=== PATIENT | male | born 1945 | race Caucasian/White ===

== ENCOUNTER 2023-01-27 16:03 | Outpatient (CLI) | payer OTHER, MEDICARE ==
--- NOTE | 2023-01-27 17:14 | XRAY Report ---
PROCEDURE: Chest 2 View X-Ray INDICATIONS: CHEST WALL PAIN TECHNIQUE: 2 views of the chest were acquired. COMPARISON: None. FINDINGS: Surgical changes and devices: None. Lungs and pleura: No pleural effusions or pneumothorax. Lungs are clear. Mediastinum: Mediastinal contours appear normal. Heart size is normal. Bones and chest wall: No suspicious bony lesions. Overlying soft tissues appear unremarkable. IMPRESSION: No acute cardiopulmonary process. Reviewed by: Daniel Carr MD on 01/27/2023 5:13 PM PDT Approved by: Daniel Carr MD on 01/27/2023 5:13 PM PDT Station ID: [id number]
== END 2023-01-27 16:04 | disposition home or self-care (01) ==
LOC: DI 16:03
PROVIDERS: ATTEND Registered Nurse
DX: R07.89 Other chest pain (principal)

== ENCOUNTER 2023-03-17 16:27 | Outpatient (CLI) | payer MEDICARE | END 2023-03-17 16:28 | disposition critical access hospital (66) | LOC: EMS 16:27 | DX: R07.89 Other chest pain (principal); R06.02 Shortness of breath; R61 Generalized hyperhidrosis; R53.83 Other fatigue | CPT/HCPCS: A0425; A0427 ==

== ENCOUNTER 2023-03-17 16:50 | Emergency (ER) | payer MEDICARE ==
--- NOTE | 2023-03-17 17:06 | ED Physician Documentation ---
PD HPI CHEST PAIN - Stated complaint Stated Complaint: GENERAL WEAKNESS/SOA/DIZZY - History obtained from History obtained from: Patient, EMS - Additional information Additional information: 77-year-old gentleman with type 2 diabetes on insulin no history of heart disease. He got out of bed this morning feeling inappropriately fatigued. He did not really know why. He did a little more yesterday than normal, but he did not think it was enough to make him feel fatigued. Then after breakfast he went into his shop and was very diaphoretic while doing relatively minor physical tasks there and around 1 PM developed substernal chest pressure "heartburn." That can was coming and going throughout the afternoon. Finally he called the EMS and he was feeling better after a nitro glycerin in route. He has no pressure now. While still at home he took a Tums and that was not helpful. No recent travel, pedal edema or calf pain. PD PAST MEDICAL HISTORY - Past Medical History Past Medical History: Yes Cardiovascular: Hypertension Endocrine/Autoimmune: Type 2 diabetes - Allergies Allergies/Adverse Reactions: Allergies Allergy/AdvReac Type Severity Reaction Status Date / Time No Known Drug Allergies Allergy Verified 03/17/23 17:22 PD ED PE NORMAL - Vitals Vital signs reviewed: Yes - General General: Alert and oriented X 3, No acute distress - Neck Neck: Supple, no meningeal sign, No bony TTP - Cardiac Cardiac: RRR, No murmur - Respiratory Respiratory: No respiratory distress, Clear bilaterally - Abdomen Abdomen: Non tender - Extremities Extremities: No edema, No calf tenderness / cord - Neuro Neuro: Alert and oriented X 3, Normal speech Results - Vitals Vitals: Vital Signs - 24 hr 03/17/23 17:14 Temperature 36.0 C L Heart Rate 93 Respiratory 20 Rate Blood Pressure 126/74 O2 Saturation 94 Oxygen O2 Source Room air - EKG (time done) 8097 EKG releavant findings:: EKG personally interpreted by author of this note. Relevant findings are: Rate: Rate (enter#) (91) Rhythm: NSR [place]: Normal Intervals: Other (LAFB) QRS: Normal Ischemia: Normal ST segments. No: ST elevation c/w ischemia, ST depression - Labs Labs: Laboratory Tests 03/17/23 03/17/23 03/17/23 17:12 17:12 19:15 WBC 11.4 H RBC 4.91 Hgb 15.6 Hct 46.3 MCV 94.3 H MCH 31.8 H MCHC 33.7 RDW 13.9 Plt Count 315 MPV 9.5 Neut # (Auto) 7.7 H Lymph # (Auto) 2.6 Cherry # (Auto) 0.9 Eos # (Auto) 0.1 Baso # (Auto) 0.1 Absolute Nucleated RBC 0.00 Nucleated RBC % 0.0 Sodium 141 Potassium 3.2 L Chloride 105 Carbon Dioxide 27 Anion Gap 9.0 BUN 15 Creatinine 1.2 Estimated GFR (MDRD) 59 L Glucose 130 H Calcium 9.8 Total Bilirubin 0.4 AST 23 ALT 23 Alkaline Phosphatase 68 Troponin I High Sens 9.0 9.0 Total Protein 6.6 Albumin 3.9 Globulin 2.7 Albumin/Globulin Ratio 1.4 Lipase 16 PD Medical Decision Making - ED course ED course: 77-year-old gentleman had episode of chest pressure was feeling fatigued all day. Initial work-up demonstrated normal EKG and negative troponin with CBC showing mild nonspecific leukocytosis and CMP normal save mild hypokalemia. Repeat troponin was done after 2 hours and stable and flat. He had no chest pain while in the emergency department but he did have "heartburn" which did respond to Maalox here. Prior to discharge she showed me his Fitbit tracing from the day and he had several hours of tachycardia between 120 and 140. It did not give a rhythm. Given that I do wonder if perhaps he was having A-fib but hard to say for sure without definitive rhythm. Advise follow-up with his doctor for stress testing and consideration for Holter or ZIO monitor. Departure - Departure Disposition: 01 Home, Self Care Clinical Impression: Atypical chest pain Condition: Good Record reviewed to determine appropriate education?: Yes Instructions: ED Chest Pain Atypical Unkn Cause Comments: Given the elevated heart rate you noticed on your Fitbit, I do wonder if you are having episodic atrial fibrillation today. Your troponins done twice in the emergency department were negative and normal and your rhythm and EKG were unremarkable while in the emergency department. Talk with your doctor tomorrow, recommend follow-up for stress testing and echo, and consideration for longer- term cardiac monitoring such as a Zio patch, until that is set up by [employer] you could also buy a "kardia" monitor on [employer] which are relatively cheap. Return if worse.
[2023-03-17 17:18] LABS: BASOPHILS # (AUTO) 0.1 10^3/uL (0.0-0.1); BASOPHILS % (AUTO) 0.6 %; EOSINOPHILS # (AUTO) 0.1 10^3/uL (0.0-0.7); EOSINOPHILS % (AUTO) 0.6 %; HCT - HEMATOCRIT 46.3 % (42.0-52.0); HGB - HEMOGLOBIN 15.6 g/dL (14.0-18.0); LYMPHOCYTES # (AUTO) 2.6 10^3/uL (1.5-3.5); LYMPHOCYTES % (AUTO) 22.6 %; MEAN CORPUSCULAR HEMOGLOBIN 31.8 pg (27.0-31.0); MEAN CORPUSCULAR HGB CONC 33.7 g/dL (32.0-36.0); MEAN CORPUSCULAR VOLUME 94.3 fL (80.0-94.0); MEAN PLATELET VOLUME 9.5 fL (7.4-11.4); MONOCYTES # (AUTO) 0.9 10^3/uL (0.0-1.0); MONOCYTES % (AUTO) 8.3 %; NEUTROPHILS # (AUTO) 7.7 10^3/uL (1.5-6.6); NEUTROPHILS % (AUTO) 67.5 %; PLT - PLATELET COUNT 315 10^3/uL (130-450); RED BLOOD COUNT 4.91 10^6/uL (4.70-6.10); RED CELL DISTRIBUTION WIDTH 13.9 % (12.0-15.0); WHITE BLOOD COUNT 11.4 x10^3/uL (4.8-10.8)
[2023-03-17 17:35] LABS: ALBUMIN 3.9 g/dL (3.2-5.5); ALBUMIN/GLOBULIN RATIO 1.4 (1.0-2.2); BILIRUBIN,TOTAL 0.4 mg/dL (0.2-1.0); CALCIUM 9.8 mg/dL (8.5-10.3); CREATININE 1.2 mg/dL (0.6-1.3); POTASSIUM 3.2 mmol/L (3.5-4.5); TOTAL PROTEIN 6.6 g/dL (6.4-8.9)
--- NOTE | 2023-03-17 17:40 | XRAY Report ---
PROCEDURE: Chest 1 View X-Ray INDICATIONS: Chest Pain TECHNIQUE: One view of the chest was acquired. COMPARISON: CXR 01/27/2023. FINDINGS: Surgical changes and devices: None. Metallic density at the left axilla, unchanged. Lungs and pleura: No pleural effusions or pneumothorax. No consolidation. Left basilar atelectasis o r scarring, unchanged. Mediastinum: Mediastinal contours appear normal. Heart size is normal. Bones and chest wall: No suspicious bony lesions. Overlying soft tissues appear unremarkable. IMPRESSION: No acute cardiopulmonary process. Reviewed by: Keith Tobin MD on 03/17/2023 5:39 PM PDT Approved by: Keith Tobin MD on 03/17/2023 5:39 PM PDT Station ID: [id number]
[2023-03-17] MEDS ORDERED: MAG HYDROX/AL HYDROX/SIMETH 30 ML UDC PO STA (18:00)
[2023-03-17 20:20] VITALS: BP 125/66; O2SAT 96
== END 2023-03-17 20:19 | disposition home or self-care (01) ==
LOC: EDUNIT# → ED 16:50
DX: R07.89 Other chest pain (principal); I10 Essential (primary) hypertension; E11.9 Type 2 diabetes mellitus without complications
CPT/HCPCS: 36415; 71045; 80053; 83690; 84484; 85025; 93005; 99283; 99284; A9270